=== PATIENT | female | born 1950 | race Caucasian/White ===

== ENCOUNTER 2018-04-20 06:26 | Outpatient (CLI) | payer MEDICARE ==
[~2018-04-20] VITALS: Ht 160 cm; Wt 131.5 kg
[2018-04-20] VITALS (12 sets, daily range): BP systolic 106–165; BP diastolic 53–83
[2018-04-20] MEDS ORDERED: LIDOCAINE 1% PF 2 ML VIAL. ONE (07:10)
[2018-04-20] MEDS ORDERED: IODIXANOL 320 MG/ML 100 ML VIAL. ONE ×2 (07:10→08:30)
[2018-04-20] MEDS ORDERED: LISI1TAB5 PO (07:28)
[2018-04-20] MEDS ORDERED: METF500T16 PO (07:28)
[2018-04-20] MEDS ORDERED: MELO15TA23 PO (07:28)
[2018-04-20] MEDS ORDERED: POTA10TA12 PO (07:28)
[2018-04-20] MEDS ORDERED: GLIM2TAB2 PO (07:28)
[2018-04-20] MEDS ORDERED: INSU100I13 SQ (07:28)
[2018-04-20] MEDS ORDERED: METO-239 PO (07:28)
[2018-04-20] MEDS ORDERED: CRESTOR10 MG PO (07:28)
[2018-04-20] MEDS ORDERED: PRAM0.255 PO (07:28)
[2018-04-20 07:29] LABS: HEMATOCRIT 38.5 % (36.0-47.0); HEMOGLOBIN 12.7 g/dL (12.0-15.5); RED BLOOD COUNT 4.15 x10^6/uL (3.50-5.40); RED CELL DISTRIBUTION WIDTH 15.2 % (11.5-14.5); WHITE BLOOD COUNT 6.2 x10^3/uL (4.0-11.0)
[2018-04-20 07:38] LABS: PROTHROMBIN TIME PATIENT 11.7 SEC (11.7-14.0)
[2018-04-20 07:43] LABS: CALCIUM 8.8 mg/dL (8.5-10.1); GFR 55.3; POTASSIUM 4.2 mmol/L (3.5-5.1)
[2018-04-20] MEDS ORDERED: HEPARIN for IV BOLUS 10,000 UNIT/10 ML VIAL. ONE ×2 (07:51→08:53)
[2018-04-20] MEDS ORDERED: MIDAZOLAM HCL/PF 2 MG/2 ML VIAL. ONE (07:51)
[2018-04-20] MEDS ORDERED: fentaNYL PF VIAL 100 MCG/2 ML VIAL ONE (07:51)
[2018-04-20] MEDS ORDERED: VERAPAMIL 5 MG/2 ML VIAL. ONE (07:51)
[2018-04-20] MEDS ORDERED: NITROGLYCERIN 200 MCG/2 ML SYRINGE FOR CATH/VASC LAB. ONE ×2 (07:52→12:00)
[2018-04-20] MEDS ORDERED: LIDOCAINE 1% PF 2 ML VIAL. INJ ONE (08:30)
[2018-04-20] MEDS ORDERED: HEPARIN for IV BOLUS 10,000 UNIT/10 ML VIAL. IART ONE (08:30)
[2018-04-20] MEDS ORDERED: IODIXANOL 320 MG/ML 100 ML VIAL. IART ONE (08:30)
[2018-04-20] MEDS ORDERED: VERAPAMIL 5 MG/2 ML VIAL. IART ONE (08:30)
[2018-04-20] MEDS ORDERED: fentaNYL PF VIAL 100 MCG/2 ML VIAL IV ONE (08:30)
[2018-04-20] MEDS ORDERED: HEPARIN for IV BOLUS 10,000 UNIT/10 ML VIAL. IV ONE (08:30)
[2018-04-20] MEDS ORDERED: MIDAZOLAM HCL/PF 2 MG/2 ML VIAL. IV ONE (08:30)
[2018-04-20] MEDS ORDERED: NITROGLYCERIN 200 MCG/2 ML SYRINGE FOR CATH/VASC LAB. IART ONE (08:30)
[2018-04-20] MEDS ORDERED: ADENOSINE 90 MG/30 ML VIAL. IV ONE ×3 (08:33→08:50)
[2018-04-20] MEDS ORDERED: CONTRAST GIVEN. MC PRN (08:45)
[2018-04-20] MEDS ORDERED: ADENOSINE 90 MG in IV NORMAL SALINE 50ML 90 ML IV ONE (09:00)
--- NOTE | 2018-04-20 09:16 | PDOC ---
MODERATE SEDATION ASSESSMENT RISKS/ALTERNATIVES Risks/Alternatives Risks and alternatives of this type of sedation and procedure discussed with: RISK/ALTERNATIVES: Patient H & P ON CHART H & P H & P on chart and reviewed for co-morbid conditions and appropriate labs. H&P ON CHART: Yes STATUS PREG STATUS ASSESSED: N/A MEDS/ALLERGIES REVIEWED Meds/Allergies Reviewed Medications and Allergies including time and route of recently administered narcotics and sedatives. MEDS/ALLERGIES REVIEWED: Yes ASA RATING ASA RATING: II AIRWAY ASSESSMENT Airway Assessment Airway patency, oral function limitations, presence of caps, crowns, dentures, partials, and ability to extend neck assessed. AIRWAY ASSESSMENT: Yes MALLAMPATI SCORE MALLAMPATI SCORE: II PRE-SEDATION ASSESSMENT PRE-SEDATION ASSESSMENT: Yes SARA HYMAN MD Apr 20, 2018 09:16
[2018-04-20] MEDS ORDERED: IV 1/2 NORMAL SALINE 1,000 ML IV SCH (09:30)
--- NOTE | 2018-04-20 09:50 | CARD ---
MR#: [id number] Date of Study: 04/20/2018 Ordering Physician: SARA HYMAN, Referring Physician: SARA HYMAN Tech: SERGIO ARNOLD RTR APPROVED REPORT Technologist: SERGIO ARNLOD RTR Nurse: JOCELYN VARGAS RN Procedure(s) performed: 1. Left heart catheterization, selective coronary angiography and left ventr iculography via right transradial approach 2. Instant wave free ratio (IFR) and Fractional flow reserve (FFR) measurement to right coronary art jon Moderate sedation: 60 mins INDICATION The indication(s) include : Dyspnea on exertion and positive stress test. [facility] Clinical Frailty Scale [facility] Clinical Frailty Scale: Mildly Frail Heart Failure Heart Failure: No PROCEDURE NARRATIVE After explaining the risks, benefits and alternative options, informed consent was obtained from bennett ent. Patient was brought to the cardiac Oriental Medicine Practitioner and right wrist was prepped and draped in the usual fashion after confirming a positive modified David's test. Arterial access was obtained in the [facility] t radial artery and a 6 [place]cu[place]orean sheath was inserted. 6 [place] Tig catheter was used to perform [place] angiography of the left and right coronary arteries. 6 [place] pigtail catheter was used to perfo rm left ventriculography. Since patient was found to have angiographically borderline significant st enosis involving the right coronary artery, a decision was made to perform physiologic assessment usi ng Instant wave free ratio (IFR). The lesion in the midsegment of the right coronary artery was cros sed with a E-Duction verrata PressureWire and IFR measurement was made that came back borderline signif icant at 0.91. Hence a decision was made to assess this further using fractional flow reserve (FFR) m easurement. Patient was then given intravenous adenosine per protocol and FFR measurement was made th at came back in significant at 0.92. Hence no interventions were performed. Patient tolerated the pro cedure well. Hemostasis was achieved using TR band. There were no immediate complications. The fol [facility] findings were noted. FINDINGS 1. Hemodynamics: Left ventricular end-diastolic pressure of 18 mmHg. No pullback gradient across th e aortic valve. 2. Left ventriculography: Normal left ventricle systolic function with ejection fraction estimated at 75%. No significant mitral regurgitation seen. 3. Coronary angiography: a. The left main coronary artery arose from the left sinus of Valsalva, gave rise to the left anteri or descending and left circumflex arteries and did not show any significant stenosis. b. The left anterior descending artery did not show any significant stenosis. c. The left circumflex artery did not show any significant stenosis. d. The right coronary artery was a large and dominant vessel arising from the right sinus of Valsalv a that showed 50-60% stenosis involving the midsegment there was physiologically insignificant based on FFR measurement of 0.92. Conclusion 1. 50-60% stenosis involving the right coronary artery that was physiologically insignificant based on FFR measurement of 0.92. 2. Normal left ventricle systolic function with ejection fraction estimated at 75%. Recommendations Cardiovascular risk factor modification Signed by : Sara Hyman, Electronically Approved : 04/20/2018 09:49:49
== END 2018-04-20 12:00 | disposition home or self-care (01) ==
LOC: CCL 06:26
PROVIDERS: ATTEND Internal Medicine Cardiovascular Disease
DX: I25.10 Atherosclerotic heart disease of native coronary artery without angina pectoris (principal); I10 Essential (primary) hypertension; E11.9 Type 2 diabetes mellitus without complications; E78.5 Hyperlipidemia, unspecified; Z88.0 Allergy status to penicillin; Z88.2 Allergy status to sulfonamides; Z79.899 Other long term (current) drug therapy; Z79.4 Long term (current) use of insulin; Z79.82 Long term (current) use of aspirin; Z98.84 Bariatric surgery status; Z98.890 Other specified postprocedural states; Z83.3 Family history of diabetes mellitus; Z82.49 Family history of ischemic heart disease and other diseases of the circulatory system; Z83.6 Family history of other diseases of the respiratory system
CPT/HCPCS: 36415; 80048; 85027; 85610; 93458; 93571; 99152; 99153; C1769; C1892; J0153; J1644; J2250; J3010; J3490; Q9967

== ENCOUNTER → 2018-12-17 | Outpatient (CLI) | payer MEDICARE ==
[2018-04-20 11:45] VITALS: BP 106/64
[~2018-12-17] MED LIST: CRESTOR10 MG PO; GLIM2TAB3 PO; INSU100I13 SQ; LISI1TAB19 PO; MELO15TA23 PO; METF500T16 PO; METO-239 PO; POTA10TA12 PO; PRAM0.255 PO
--- NOTE | 2018-12-17 15:38 | RAD ---
MR#: [id number] Date of Study: 12/17/2018 Ordering Physician: SARA HYMAN, Referring Physician: SARA HYMAN, Tech: Sara Walker RDMS, KSENIAT, RTR APPROVED REPORT Patient Location : OUT-PATIENT Indications Lower Extremity Edema : Bilateral Findings Grayscale images of the bilateral saphenofemoral junctions are grossly unremarkable. No obvious evide nce of thrombus in the bilateral greater and lesser saphenous veins on limited images. The right great saphenous vein measures 7.9 mm and has no evidence of reflux. The left great saphenou s vein measures 4.3 mm and has no evidence of reflux. Bilateral lesser saphenous veins do not show any evidence of reflux. Critical Notification Critical Value: No <Conclusion> Negative for reflux in the bilateral greater and lesser saphenous veins Signed by : Virgilio Sandoval, Electronically Approved : 12/17/2018 15:38:21
== END | disposition home or self-care (01) ==
LOC: US 08:44
PROVIDERS: ATTEND Internal Medicine Cardiovascular Disease
DX: R60.0 Localized edema (principal)
CPT/HCPCS: 93970

== ENCOUNTER → 2019-07-14 | Outpatient (CLI) | payer MEDICARE ==
[2018-04-20 11:45] VITALS: BP 106/64
[~2019-07-14] MED LIST changes: -GLIM2TAB3 PO; +GLIM2TAB7 PO; -POTA10TA12 PO; +POTASSIUM CHLO10 ME1 PO
--- NOTE | 2019-07-14 09:07 | CARD ---
MR#: [id number] Date of Study: 07/14/2019 Ordering Physician: SARA HYMAN, Referring Physician: SARA HYMAN Tech: Elodia Fuentes SHARON APPROVED REPORT EXAM: Two-dimensional and M-mode echocardiogram with Doppler and color Doppler. Other Information Quality : Technically Limited Technically limited study due to morbid obesity INDICATION Cardiac Disease: CAD 2D DIMENSIONS RVDd2.7 (2.9-3.5cm)Left Atrium(2D)4.0 (1.6-4.0cm) IVSd1.4 (0.7-1.1cm)Aortic Root(2D)3.3 (2.0-3.7cm) LVDd3.6 (3.9-5.9cm)LVOT Diameter2.1 (1.8-2.4cm) PWd1.1 (0.7-1.1cm)LVDs2.8 (2.5-4.0cm) FS (%) 23.1 %SV26.4 ml LVEF(%)55.0 (>50%) Aortic Valve AoV Peak Joshua.178.5cm/sAoV VTI41.9cm AO Peak GR.12.7mmHgLVOT Peak Joshua.130.1cm/s AO Mean GR.8mmHgAVA (VMAX)2.58cm2 TUNDE (VTI)2.05gz3OL P 1/2 Bihm165ji Mitral Valve MV E Egrsgvzt37.9cm/sMV DECEL UZFD179zm MV A Xjkewlry730.7cm/sE/A Ratio0.9 Tricuspid Valve TR P. Tqgukngm913ft/sRAP VHPXCDXZ9woVz TR Peak Gr.20scWwREEE93rzJm Pulmonary Vein S1 Aezhuntb17.5cm/sD2 Ikzyruym37.8cm/s LEFT VENTRICLE The left ventricle is normal size. There is mild concentric left ventricular hypertrophy. The left ve ntricular systolic function is normal. The Ejection Fraction is 55-60%. There is normal LV segmental wall motion. Transmitral Doppler flow pattern is Grade I-abnormal relaxation pattern. RIGHT VENTRICLE The right ventricle is normal size. The right ventricular systolic function is normal. ATRIA The left atrium is mildly dilated. The right atrium size is normal. The interatrial septum is intact with no evidence for an atrial septal defect or patent foramen ovale as noted on 2-D or Doppler imagi ng. AORTIC VALVE The aortic valve is calcified but opens well. Doppler and Color Flow revealed mild aortic regurgitati on. There is no significant aortic valvular stenosis. MITRAL VALVE The mitral valve is normal in structure and function. There is no evidence of mitral valve prolapse. There is no mitral valve stenosis. Doppler and Color-flow revealed trace to mild mitral regurgitation . TRICUSPID VALVE The tricuspid valve is normal in structure and function. Doppler and Color Flow revealed trace tricus pid regurgitation. The PA pressure was estimated at 29 mmHg. There is no tricuspid valve stenosis. PULMONIC VALVE The pulmonic valve is not well visualized. Doppler and Color Flow revealed no pulmonic valvular regur gitation. There is no pulmonic valvular stenosis. GREAT VESSELS The aortic root is normal in size. The ascending aorta is not well seen. The IVC is normal in size an d collapses >50% with inspiration. PERICARDIAL EFFUSION There is no evidence of significant pericardial effusion. Critical Notification Critical Value: No <Conclusion> The left ventricular systolic function is normal. The Ejection Fraction is 55-60%. There is normal LV segmental wall motion. Transmitral Doppler flow pattern is Grade I-abnormal relaxation pattern. Mild aortic regurgitation. Trace to mild mitral regurgitation. Trace tricuspid regurgitation. The PA pressure was estimated at 29 mmHg. There is no evidence of significant pericardial effusion. Signed by : Sara Hyman, Electronically Approved : 07/14/2019 09:07:02
== END | disposition home or self-care (01) ==
LOC: CARD 07:41
PROVIDERS: ATTEND Internal Medicine Cardiovascular Disease
DX: I08.0 Rheumatic disorders of both mitral and aortic valves (principal); I25.10 Atherosclerotic heart disease of native coronary artery without angina pectoris
CPT/HCPCS: 93306